=== PATIENT | female | born 1960 | race American Indian/Alaskan Native ===

== ENCOUNTER 2017-03-08 19:13 | Emergency (ER) | payer MEDICAID ==
[2017-03-08] MEDS ORDERED: TYLENOL PO ONE (19:52)
[2017-03-08] MEDS ORDERED: TYLENOL ONE (19:52)
--- NOTE | 2017-03-08 21:54 | Cat Scan Report ---
FINAL REPORT EXAM: CT HEAD/BRAIN WO CON HISTORY: head injury from ground level fall TECHNIQUE: CT head without contrast PRIORS: None. FINDINGS: No acute intra-axial or extra-axial hemorrhage is identified. There is no evidence of midline shift or mass effect. The ventricles and sulci are within normal limits. Sykes-white matter differentiation is intact. No acute parenchymal abnormalities seen. Bony calvarium is grossly intact. Visualized portions of the mastoids and paranasal sinuses are unremarkable. IMPRESSION: Negative CT head
--- NOTE | 2017-03-08 21:58 | Cat Scan Report ---
FINAL REPORT EXAM: CT CERVICAL SPINE WO CON HISTORY: head injury from ground level fall TECHNIQUE: CT cervical spine with reconstructions PRIORS: None. FINDINGS: Vertebral bodies demonstrate normal height and alignment. The disk spaces are within normal limits. The facet joints demonstrate normal alignment. The spinous processes are intact. Craniocervical junction is unremarkable. C1 and C2 are intact. IMPRESSION: Negative CT cervical spine. No acute abnormality seen.
--- NOTE | 2017-03-08 23:30 | Cat Scan Report ---
FINAL REPORT EXAM: CT FACIAL BONES WO CON HISTORY: trauma-r/o fx TECHNIQUE: Maxillofacial CT with coronal and sagittal multiplanar reconstruction PRIORS: None. FINDINGS: The nasal bone is intact. The zygomatic arches are within normal limits. No evidence of fluid level within the paranasal sinuses. No intraorbital abnormalities seen. No facial fractures are identified. The TM joints and the mandible are within normal limits. IMPRESSION: Negative. No evidence of acute facial bone fracture.
[2017-03-09] MEDS ORDERED: NORCO 5/325 PO ONE (01:07)
[2017-03-09] MEDS ORDERED: TORADOL IM ONE (01:07)
[2017-03-09] MEDS ORDERED: BOOSTRIX IM ONE (01:07)
--- NOTE | 2017-03-09 01:13 | Emergency Department Report ---
ED Head Trauma HPI - General Chief complaint: Head Injury Stated complaint: FALL/ PAIN Time Seen by Provider: 03/09/17 01:00 Source: patient Mode of arrival: Ambulatory Limitations: No Limitations - History of Present Illness Initial comments: 57 year old female the past medical history hypertension presents to the hospital complaining of pain to the left side of her head after fall. Patient tripped and fell striking the left side of her head/face. No LOC. Patient complains of some lightheadedness after fall. She sustained mild abrasions to both her hands and complains of generalized posterior neck muscle pain. Pain initially was rated 9/10 in intensity. Since receiving Tylenol the pain is now rated 8/10 in intensity. No reports of nausea, vomiting, focal weakness, focal numbness, or blurred vision. - Related Data Previous Rx's Medication Instructions Recorded Last Taken Type Bacitracin 1 applicatio OP BID #1 tube 03/09/17 Unknown Rx HYDROcodone/APAP 5-325 [Flint 1 each PO Q6HR PRN #20 tablet 03/09/17 Unknown Rx 5/325] Ibuprofen [Motrin] 800 mg PO Q8HR PRN #30 tablet 03/09/17 Unknown Rx Allergies/Adverse reactions: Allergies Allergy/AdvReac Type Severity Reaction Status Date / Time No Known Allergies Allergy Verified 03/08/17 20:19 ED Review of Systems ROS: Stated complaint: FALL/ PAIN Other details as noted in HPI Comment: All other systems reviewed and negative Other: Constitutional: No fevers chills Eyes: No eye pain visual changes ENT: No ear pain or throat pain Neck: Denies pain Respiratory: Denies cough wheezing shortness of breath Cardiovascular: Denies chest pain, palpitations, syncope GI: Denies abdominal pain, nausea, vomiting, diarrhea : Denies dysuria Musculoskeletal: Denies back pain Skin: as per hpi Neurologic: Deniesnumbness, weakness Psychiatric: Denies suicidal ideation, hallucinations ED Past Medical Hx - Past Medical History Hx Hypertension: Yes - Surgical History Additional Surgical History: stomach staple, hiatal hernia,bilateral feet - Social History Smoking Status: Never Smoker Substance Use Type: None - Medications Home Medications: Home Medications Medication Instructions Recorded Confirmed Last Taken Type Bacitracin 1 applicatio OP BID #1 tube 03/09/17 Unknown Rx HYDROcodone/APAP 5-325 [Flint 1 each PO Q6HR PRN #20 tablet 03/09/17 Unknown Rx 5/325] Ibuprofen [Motrin] 800 mg PO Q8HR PRN #30 tablet 03/09/17 Unknown Rx ED Physical Exam - General Limitations: No Limitations - Other Other exam information: General: No limitations, patient is alert in no acute distress Head exam: Swelling to left zygoma bone area of the face. Positive tenderness to palpation. Eyes exam: Normal appearance, pupils equal reactive to light, extraocular movements intact ENT: Moist mucous membrane, normal oropharynx Neck exam: Normal inspection, full range of motion, no midline tenderness. Bilateral paracervical muscle tenderness Respiratory exam: Clear to auscultation bilateral, no wheezes, rales, crackles Cardiovascular: Normal rate and rhythm, normal heart sounds Abdomen: Soft, nondistended, and nontender, with normal bowel sounds, no rebound, or guarding Extremity: Full range of motion, no deformity Back: Normal Inspection, full range of motion, no tenderness Neurologic: Alert, oriented x3, cranial nerves intact, no motor or sensory deficit Psychiatric: normal affect, normal mood Skin: Superficial abrasions to both hands ED Course Vital Signs 03/08/17 03/08/17 19:44 20:09 Temperature 98.3 F Pulse Rate 66 Respiratory 18 18 Rate Blood Pressure 142/74 O2 Sat by Pulse 100 Oximetry - Reevaluation(s) Reevaluation #1: 03/09/17 01:11 Patient stable in ED - Radiology Data Radiology results: report reviewed CT head: No acute finding CT facial bones: No acute findings CT cervical spine: No acute findings - Medical Decision Making Fall Head injury CT head unremarkable No signs of fracture Facial and cervical CT is unremarkable Abrasion Local wound care Tetanus provided Patient provided Flint and Toradol for pain Patient will be discharged with symptomatic treatment and follow up encourage - Differential Diagnosis fracture, contusion, sprain, abrasion Critical Care Time: No Critical care attestation.: If time is entered above; I have spent that time in minutes in the direct care of this critically ill patient, excluding procedure time. ED Disposition Clinical Impression: Head injury, Contusion of face, Hand abrasion Disposition: TO HOME OR SELFCARE Is pt being admited?: No Does the pt Need Aspirin: No Condition: Stable Instructions: Minor Head Injury (ED), Contusion in Adults (ED), Abrasion (ED) Additional Instructions: Take the medications as directed for pain. Follow-up with your doctor. Return if symptoms worsen. Prescriptions: Bacitracin 1 applicatio OP BID #1 tube HYDROcodone/APAP 5-325 [Flint 5/325] 1 each PO Q6HR PRN #20 tablet PRN Reason: Pain Ibuprofen [Motrin] 800 mg PO Q8HR PRN #30 tablet PRN Reason: Pain Referrals: DERRELL CLAUDIO MD [Primary Care Provider] - 3-5 Days Time of Disposition: 01:18
[2017-03-09 01:34] VITALS: BP 138/71
== END 2017-03-09 01:30 | disposition home or self-care (01) ==
LOC: ED 19:13
DX: S00.83XA Contusion of other part of head, initial encounter (principal); S60.512A Abrasion of left hand, initial encounter; W18.30XA Fall on same level, unspecified, initial encounter; Y93.89 Activity, other specified; Y92.89 Other specified places as the place of occurrence of the external cause; Y99.8 Other external cause status; I10 Essential (primary) hypertension
CPT/HCPCS: 70450; 70486; 72125; 90471; 90715; 96372; 99283; J1885